=== PATIENT | male | born 1975 | race Caucasian/White ===

== ENCOUNTER 2023-07-29 09:58 | Observation (INO) | payer OTHER ==
[~2023-07-29] VITALS: Ht 180.3 cm; Wt 86.0 kg
--- NOTE | ~2023-07-29 | EKG ---
[facility] [address] [place], [place] [address] Draft EK completed, results pending confirmation PATIENT NAME: ALDENLISA Electrocardiogram DATE OF : 71 PHYSICIAN: PRELIMINARY REPORT #: [id number] REPORT IS CONFIDENTIAL AND NOT TO BE RELEASED WITHOUT AUTHORIZATION
[2023-07-29] MEDS ORDERED: BUSPIRONE HCL10 MG (10:13)
[2023-07-29] MEDS ORDERED: PROZAC20 MG (10:14)
[2023-07-29 10:26] LABS: BASOPHILS 0.9 % (0-2); EOSINOPHILS 1.3 % (0-6); HEMATOCRIT 43.1 % (35.0-50.0); HEMOGLOBIN 14.5 g/dL (12.0-18.0); LYMPHOCYTES 15.5 % (24-44); MCHC 33.6 g/dl (30-36); MCV 86.4 fl (81-99); MONOCYTES 7.3 % (0-12); PLATELET COUNT 221 K/uL (140-440); RBC 4.99 M/ul (4.3-5.7); RDW 12.9 (10.5-15.0)
[2023-07-29 10:41] LABS: ALBUMIN 3.6 g/dL (3.4-5.0); ALBUMIN/GLOBULIN RATIO 0.86 (1.1-2.4); BUN/CREATININE RATIO 11.6 (6.0-28.6); CALCIUM 9.1 mg/dL (8.5-10.1); CREATININE, SERUM 1.12 mg/dL (0.70-1.30); PROTEIN, TOTAL 7.8 g/dL (6.4-8.2)
[2023-07-29 11:47] LABS: BILIRUBIN, URINE NEGATIVE (negative); BLOOD/HGB, URINE NEGATIVE (Negative); KETONE, URINE NEGATIVE (Negative); LEUK ESTERASE, URINE NEGATIVE (negative); NITRITE, URINE NEGATIVE (negative)
--- NOTE | 2023-07-29 16:10 | NUR ---
PT TRANSFERED TO ROOM 109 FROM ER VIA STRETCHER, ABLE TO AMBULATE FROM STRETCHER TO BED. ACCOMPANIED BY TWO GUARDS. PT STATES ABD PAIN IS TOLERABLE AT THIS TIME, 09/27. DENIES NAUSEA AT THIS TIME. RUQ TENDER TO PALPATION. IV PATENT, FLUIDS RUNNING. VSS. PT DENIES NEEDS AT THIS TIME. ORIENTED TO CALL LIGHT, PLACED WITHIN REACH. PROVIDED ICE WATER AND URINAL. PT DENIES FURTHER NEEDS AT THIS TIME. CALL LIGHT IN REACH.
[2023-07-29 16:17] VITALS: BP 111/73
[2023-07-29 17:53] VITALS: BP 130/73
[2023-07-29 19:45] VITALS: BP 110/76; BP 110/765
[2023-07-30] VITALS (9 sets, daily range): BP systolic 100–127; BP diastolic 47–75
--- NOTE | 2023-07-30 06:29 | CONS ---
[facility] [address] [place], [place] [address] Signed DATE OF CONSULTATION: 07/29/2023 CHIEF COMPLAINT: Right upper quadrant abdominal pain. HISTORY OF PRESENT ILLNESS: Lisa is a 48-year-old gentleman from [facility] [place]. He has had at least six episodes now of severe right upper quadrant abdominal pain associated with nausea. He was in [place], [place] previously and he knows he has gallstones. He was brought to our local emergency room for evaluation. White count. Liver function tests are normal along with the lipase. Ultrasound shows multiple stones and sludge, but the gallbladder wall is not thickened. The common bile duct is unremarkable 3.7 mm. There is no pericholecystic fluid. He seemed to have a positive Clement sign. I was asked to admit him as a general surgeon on-call. In the meantime, he is doing well. PAST MEDICAL HISTORY: Includes depression. PAST SURGICAL HISTORY: None. SOCIAL HISTORY: He does not smoke or drink. He is from our [facility]. He is and has three children. He is originally from [place], [place]. FAMILY HISTORY: He thinks his mom had some type of cancer associated with her heart. REVIEW OF SYSTEMS: He had 10 systems reviewed. He says he has never had any previous surgery and there is no metal in his body. ALLERGIES: None. MEDICATIONS: Buspirone 20 mg p.o. b.i.d. and fluoxetine 20 mg p.o. daily. PHYSICAL EXAMINATION: VITAL SIGNS: His blood pressure is 111/73, heart rate is 57, respiratory rate 18, temperature is 97.3. He is 100% on room air. He is 5 feet 11 inches tall, 86 kg with a body mass index of 26. Electronically Signed By: HERBER LONG MD 07/30/23 0629 PATIENT NAME: LISA RUANO CONSULTATION DATE OF : 71 REPORT #: [id number] PHYSICIAN: HERBER LONG MD PCP: NO PRIMARY CARE PHYSICIAN REPORT IS CONFIDENTIAL AND NOT TO BE RELEASED WITHOUT AUTHORIZATION [facility] [address] [place], [place] [address] Signed GENERAL: Lisa is a 48-year-old gentleman, who appears healthy and at his stated age. He is lying supine in his hospital bed. Two officers are in the room with him. He is not jaundiced. He is in no acute distress. LUNGS: Generally clear to auscultation bilaterally. HEART: Regular rate and rhythm without murmurs. ABDOMEN: Soft, flat, and nontender. He points to the right upper quadrant as the area that causes him pain. LABORATORY DATA: His white blood cell count 9.2, hemoglobin 14, neutrophils 75, platelets 221. Electrolytes unremarkable. Total bilirubin 1.0, AST 36, ALT 51, alkaline phosphatase 85, lipase 37, albumin 3.6. RADIOGRAPHIC STUDIES: Ultrasound shows mobile stones and sludge along with an unremarkable common bile duct at 3.7 mm. The gallbladder wall is not thickened. There is no pericholecystic fluid. Apparently, he had a positive Clement sign. ASSESSMENT/PLAN: Lisa is a 48-year-old gentleman, who presents with recurring episodes of biliary colic associated with his cholelithiasis. He has been admitted and given IV fluids and clear liquid diet. He has been given some pain control. I brought with me a brochure on the gallbladder and I went through that with him page by page. We discussed the location and function of the gallbladder. We have discussed laparoscopic versus open cholecystectomy. He understands expected intraop and postop course. There is risk including, but not limited to bleeding, infection, scarring, change in contour of the skin, damage to bowel, damage to main bile duct, incisional hernias and other unforeseen comorbidities. He has expressed understanding and would like to proceed. We will go ahead and add him on to our schedule in the morning. He has expressed understanding and would like to proceed as above. Herber Long MD [facility] /[id number] cc: Herber Long MD Electronically Signed By: HERBER LONG MD 07/30/23 0629 PATIENT NAME: LISA RUANO CONSULTATION DATE OF : 71 REPORT #: [id number] PHYSICIAN: HERBER LONG MD PCP: NO PRIMARY CARE PHYSICIAN REPORT IS CONFIDENTIAL AND NOT TO BE RELEASED WITHOUT AUTHORIZATION [facility] [address] [place] [id number] Signed [facility] Copies: HERBER LONG MD ~ Electronically Signed By: HERBER LONG MD 07/30/23 0629 PATIENT NAME: ALDENLISA NATAN CONSULTATION DATE OF : 71 REPORT #: [id number] PHYSICIAN: HERBER LONG MD PCP: NO PRIMARY CARE PHYSICIAN REPORT IS CONFIDENTIAL AND NOT TO BE RELEASED WITHOUT AUTHORIZATION
--- NOTE | 2023-07-30 07:05 | NUR ---
REPORT RECIEVED FROM JOHN BARRETO. PT RESTING IN BED SEMI-FOWLERS. EYES CLOSED, RR EVEN AND UNLABORED. NO NEEDS IDENTIFIED AT THIS TIME. CALL LIGHT IN REACH. 2 GUARDS IN ROOM.
--- NOTE | 2023-07-30 09:05 | NUR ---
IN TO ADMINISTER MEDICATIONS, SEE MAR. PT SITTING UP IN BED AND RESPONDS WHEN ADDRESSED. PT TAKES PO MEDICATIONS WITH SIP OF WATER. IV FLUSHES WNL. IV ABX STARTED, SEE MAR. ASSESSMENT COMPLETE. LUNG SOUNDS CLEAR. BOWEL TONES ACTIVE. PT REPORTS ABD TENDERNESS TO RUQ WITH PALPATION. ABD SOFT WITH PALPATION. PEDAL PULSES PALPABLE AND EQUAL BILATERALLY. PT REPORTING PAIN 6/10 TO ABD. JOHN TIRADO AND JEAN CARLOS BARRERA IN ROOM TO COMPLETE PRE-PROCEDURE WIPE DOWN. NO OTHER NEEDS FROM THIS RN AT THIS TIME. 2 GUARDS IN ROOM.
--- NOTE | 2023-07-30 09:23 | NUR ---
Chlorhexidine surgical wipe down given with 2 staff assist. New gown given. Pt performed oral cares and angel care independently. Full linen change. Two correctional officers in the room. Warm blankets given. Call light within reach.
--- NOTE | 2023-07-30 09:29 | NUR ---
IN TO ADMINISTER PRN PAIN MEDICAITON, SEE MAR. IV ABX STARTED, SEE MAR. PT LAYING IN BED. PT DENIES ANY NEEDS AT THIS TIME. CALL LIGHT IN REACH. 2 GUARDS IN ROOM.
--- NOTE | 2023-07-30 10:04 | NUR ---
ROUNDS. PT EXPRESSED LOW LEVELS OF ANXIETY; CONSENTED TO PRAYER. PROVIDED HOSPITALITY; PROVIDED PRAYER.
--- NOTE | 2023-07-30 10:11 | NUR ---
IN IV PUMP ALARMING, RESOLVED. NEW BAG OF IV ABX STARTED, SEE MAR. PT REPORTING PAIN 2/10 TO ABD. PT SITTING UP IN BED AND RESPONDS WHEN ADDRESSED. PT DENIES ANY OTHER NEEDS AT THIS TIME. CALL LIGHT IN REACH. 2 GUARDS IN ROOM.
--- NOTE | 2023-07-30 10:36 | NUR ---
SURGICAL NURSE HERE TO TAKE PT DOWN FOR PROCEDURE. PT SL AT THIS TIME. NO OTHER NEEDS FROM THIS RN. 2 GUARDS IN ROOM. JOHN BHAT IN ROOM.
--- NOTE | 2023-07-30 10:40 | NUR ---
pt taken to OR
--- NOTE | 2023-07-30 11:01 | NUR ---
PATIENT IS FROM [facility]. PLAN TO RETURN WHEN READY, AFTER SURGERY.
--- NOTE | 2023-07-30 12:03 | NUR ---
PT OUT OF ROOM FOR PROCEDURE.
--- NOTE | 2023-07-30 13:23 | NUR ---
07/30/23 1323 Rosy Duffy 1314 PT TO PACU SLEEPING ORAL AIRWAY IN PLACE, O2 VIA MASK AT 6L, FOGGING NOTED IN MASK.
--- NOTE | 2023-07-30 14:20 | NUR ---
PT ARRIVES BACK TO ROOM. BEDSIDE REPORT RECEIVED FROM YADIRA FRAZIER RN. VITALS COMPLETE. ASSISTED PT WITH UNDERWEAR AND PANTS. ASSESSMENT COMPLETE. LUNG SOUNDS CLEAR. BOWEL TONES HYPOACTIVE. 3 DRESSINGS NOTED TO PTs 4 LAP SITED. DRESSINGS C/D/I. ICE PACK TO ABD. PT RESTING WITH EYES CLOSED, PT RESPONDS WHEN ADDRESSED. 2 GUARDS IN ROOM. NO OTHER NEEDS IDENTIFIED AT THIS TIME. CALL LIGHT IN REACH.
--- NOTE | 2023-07-30 16:57 | NUR ---
IN TO ROUND ON PT. PT LAYING IN BED WITH EYES CLOSED, RR EVEN AND UNLABORED. O2 SATS AT 98% ON 3L NC. PT TITRATED TO RA AND O2 SATS MAINTAIN AT 98%. PT REPORTING PAIN 03/30 TO ABD. PRN PAIN MEDICATION ADMINISTERED, SEE MAR. PT TAKES PO MEDICATION WITH NO ISSUES. IV INFUSING WNL. DINNER TRAY ARRIVES. PT DENIES ANY OTHER NEEDS AT THIS TIME. CALL LIGHT IN REACH. 2 GUARDS IN ROOM.
--- NOTE | 2023-07-30 18:27 | NUR ---
IN PT REPORTING PAIN 12/28. PRN PAIN MEDICATION ADMINISTERED, SEE MAR. PT SITTING UP IN BED AND RESPONDS WHEN ADDRESSED. PT TAKES PO MEDICATION WITH NO ISSUES. PT DENIES NAUSEA AFTER EATING DINNER. ENCOURAGED PO INTAKE. PT PROVIDED MARTHA. PT DENIES ANY OTHER NEEDS AT THIS TIME. CALL LIGHT IN REACH. 2 GUARDS IN ROOM.
--- NOTE | 2023-07-30 18:47 | NUR ---
IN TO ENCOURAGE PT TO ATTEMPT TO VOID. SBA FROM BED TO RESTROOM. PT ON TOILET. 2 GUARDS IN ROOM. PT AND GUARDS INFORMED TO CALL WHEN PT IS FINISHED. GUARDS AND PT VERBALIZE UNDERSTANDING. NO OTHER NEEDS FROM THIS RN. CALL LIGHT IN REACH.
--- NOTE | 2023-07-30 19:06 | NUR ---
THIS RN CALLED DR. GARCÍA REGARDING PTs URINE OUTPUT AND BLADDERSCAN OF 1046. ORDERS RECEIVED, VERIFIED WITH READBACK.
--- NOTE | 2023-07-30 19:25 | NUR ---
Patient in room lying in bed resting, appearsw comfortable, 2 gaurds at bedside, patient in hand and ankle cuffs for security. Report provided by day shift RN, call light within reach.
--- NOTE | 2023-07-30 19:28 | NUR ---
IN TO STRAIGHT CATH PT PER ORDERS. PT STRAIGHT CATHED PER POLICY. 1200ML OUT NOTED. PT TOLERATES WELL. PT IN BED. PT DENIES ANY OTHER NEEDS AT THIS TIME. CALL LIGHT IN REACH. 2 GUARDS IN ROOM.
--- NOTE | 2023-07-30 20:35 | NUR ---
Patient resting in bed, VSS, given pudding and tea and patient tolerated without difficulty, 3 lap sites to abdomine clean, dry and intact. lowest one with small amt of old drainage noted, BT's active, denies nausea, IV infusing @ 100/h. call light within reach. Watching TV.
--- NOTE | 2023-07-30 21:40 | NUR ---
Patient voided 600 mls without difficulty. Given 2 apple juices to drink and tolerated well.
--- NOTE | 2023-07-30 23:00 | NUR ---
CALL MADE TO DR GARCÍA TO KAMILAH WHETHER pt CAN BE DISCHARGED BACK TO FACILITY ([facility]) [facility]. FOLLOWING STRAIGHT CATH AT SHIFT CHANGE, pt HAS SINCE VOIDED 600 MLS- TELEPHONE ORDER READ BACK OKAY TO CONTINUE WITH DC. pt EATING/DRINKING WELL, VSS, PAIN WNL PER PRIMARY RN SHIVANI.
--- NOTE | 2023-07-30 23:35 | NUR ---
IN ROOM TO COMPLETE DISCHARGE INSTRUCTIONS WITH pt, [facility] REMAIN IN ROOM AND PRESENT FOR DISCHARGE. pt ASKING ABOUT GETTING A SANDWICH AND JUICE, BOTH PROVIDED. pt ALSO VOIDED ANOTHER APPROX 550MLS LIGHT YELLOW URINE. WRITTEN DISCHARGE INSTRUCTIONS WITH PRESCRIPTION IN [facility] ENVELOPE AND HANDED TO GUARD. IV DC'D BY PRIMARY RN SHIVANI AND VS COLLECTED AND STABLE. PRN NORCO X2 GIVEN TO Pt BY PRIMARY RN SHIVANI PRIOR TO DC TO [facility], pt WHEELED IN WC WITH GUARDS X2, [facility]. PRIMARY RN COMPLETED TELEPHONE REPORT. SLAB LIFTING ENGINEER MADE AWARE.
--- NOTE | 2023-07-31 07:01 | OR ---
[facility] [address] [place], [place] [address] Signed DATE OF OPERATION: 07/30/2023 SURGEON: Herber Long MD PREOPERATIVE DIAGNOSES: 1. Cholecystitis, cholelithiasis. 2. Biliary colic. POSTOPERATIVE DIAGNOSES: 1. Cholecystitis, cholelithiasis and pus. 2. Biliary colic. PROCEDURE: Laparoscopic cholecystectomy without intraoperative cholangiogram. ESTIMATED BLOOD LOSS: None. FINDINGS: Lisa had some gallbladder wall edema and some mild thickening. His gallbladder was entirely full of thick pus. He had several small 3-4 mm yellow cholesterol stones. We could not get the intraoperative cholangiocatheter pass down through the valves of Heister. Therefore, we could not perform the intraoperative cholangiogram. The common bile duct was unremarkable on ultrasound. INDICATIONS: Lisa is a 48[facility] [place]. He has had six or more episodes of right upper quadrant abdominal pain with nausea. He found out he had gallstones when he was down in [place], [place]. He is now up here in [place], [place]. When he had recurrent symptoms, he was brought to our local emergency room from the [facility]. His labs were unremarkable. Ultrasound showed some mobile stones and what appeared to be sludge. The gallbladder wall was not thickened. Common bile duct was 3.7 mm. There was no pericholecystic fluid. He seemed to have a positive Clement sign. I had been asked to admit him as a local general surgeon on-call. I met him after work. He seemed to be doing quite fine. We let him have liquids till midnight and n.p.o. after midnight. We added him to our schedule next day. He received Rocephin and Flagyl. He received subcutaneous Lovenox as well as SCDs. I brought with me a brochure on the gallbladder. We had discussed the location of function of the gallbladder. We discussed laparoscopic versus open cholecystectomy. We reviewed the expected intraop and postop course. There Electronically Signed By: HERBER LONG MD 07/31/23 0701 PATIENT NAME: LISA RUANO OPERATIVE REPORT DATE OF : 71 REPORT #: [id number] PHYSICIAN: HERBER LONG MD PCP: NO PRIMARY CARE PHYSICIAN REPORT IS CONFIDENTIAL AND NOT TO BE RELEASED WITHOUT AUTHORIZATION [facility] [address] [place], [place] [address] Signed is risk including, but not limited to bleeding, infection, scarring, change in contour of skin, damage to bowel, damage to main bile duct, incisional hernias and other unforeseen comorbidities. We also talked about the possibility of common bile duct stones requiring endoscopic ultrasound and ERCP. He is aware that is not available in our community. He had expressed understanding and wished to proceed. PROCEDURE IN DETAIL: Lisa was taken into our operating room and placed in the supine position under general endotracheal tube anesthesia. He was given preoperative antibiotics with Rocephin and Flagyl. He had subcutaneous Lovenox. SCDs were utilized. He was prepped and draped in the usual sterile fashion. All trocars were placed in their usual positions under direct visualization of camera without difficulty. We took pictures throughout for photodocumentation. His gallbladder was not overly thickened, but it was edematous throughout. His liver was quite unremarkable. We had created a small opening in the top of the gallbladder and out came the pus which we suctioned through our suction public health physician. We then grasped that hole with our grasper and lifted the gallbladder in the right upper quadrant. He has a very long gallbladder and it took a few minutes starting about the mid gallbladder to bring all the surrounding fat down and out of the way with blunt dissection. We put several clips on the cystic artery and it had been divided. We stayed at very high on the gallbladder and we could see as a long neck of the gallbladder. We opened it sharply and suctioned out some additional pus. We milked out the cystic duct toward the neck of the gallbladder and did not find any additional stones. The intraoperative cholangiocatheter was inserted and passed down towards the cystic duct. We could not get the catheter to pass into the cystic duct. We tried to pass some saline through our catheter down the cystic duct, which was unsuccessful. We therefore secured the neck of the gallbladder as it came down towards the cystic duct with a PDS Endoloop. Two clips were placed across this area to jolly its location. The gallbladder was then slowly and carefully removed from the gallbladder fossa with the help of the cautery and placed into an EndoCatch bag. After this, we used our laparoscopic suturing device to pass 0-Vicryl suture on either side of the fascia of the subxiphoid trocar site. This was tied down to close this fascia primarily. After this, all the gas was allowed to escape and all the trocars were removed. I personally opened the gallbladder carefully in our kidney basin. I did not touch the gallbladder directly with my hands. I used all instruments. We could see that the gallbladder still had some pus and an additional 3 mm yellow cholesterol stone. We followed it right down to the neck of the gallbladder. After this, the gallbladder was passed off the table for photodocumentation. Those instruments were also passed off the table. We opened up a new DeBakey forceps. We then closed the fascia of the supraumbilical trocar site with interrupted [id number] and simple 0-Vicryl suture. Each trocar site was infiltrated with local anesthetic. Each trocar site was irrigated and suctioned out until clear. The skin and dermis of each trocar site were closed with interrupted 3-0 subcuticular Monocryl sutures. Dry gauze and tape were then applied to all incisions. Electronically Signed By: HERBER LONG MD 07/31/23 0701 PATIENT NAME: LISA RUANO OPERATIVE REPORT DATE OF : 71 REPORT #: [id number] PHYSICIAN: HERBER LONG MD PCP: NO PRIMARY CARE PHYSICIAN REPORT IS CONFIDENTIAL AND NOT TO BE RELEASED WITHOUT AUTHORIZATION [address] [address] Signed Lisa was then awakened from his anesthesia, extubated in the OR, and taken to recovery room in stable condition. Herber Long MD [facility] /[id number] cc: Herber Long MD [facility] Copies: HERBER LONG MD ~ Electronically Signed By: HERBER LONG MD 07/31/23 0701 PATIENT NAME: LISA RUANO OPERATIVE REPORT DATE OF : 71 REPORT #: [id number] PHYSICIAN: HERBER LONG MD PCP: NO PRIMARY CARE PHYSICIAN REPORT IS CONFIDENTIAL AND NOT TO BE RELEASED WITHOUT AUTHORIZATION
--- NOTE | 2023-08-05 14:58 | PATH ---
[facility] [address] [place], [place] [address] Signed SPECIMEN(S): A GALLBLADDER AND CONTENTS SPECIMEN SOURCE: A. GALLBLADDER AND CONTENTS CLINICAL HISTORY: Cholecystitis, biliary colic FINAL PATHOLOGIC DIAGNOSIS: Gallbladder and contents: - Acute and chronic calculous cholecystitis. JVR:elmer MICROSCOPIC EXAMINATION: Histologic sections of all submitted blocks are examined by light microscopy. These findings, together with the gross examination, support the pathologic diagnosis. GROSS DESCRIPTION: The specimen, labeled and designated "riky Ruano," is received in formalin and consists of: Specimen: Previously opened gallbladder. Dimensions: 8.5 x 3.0 cm. Serosa: Violaceous, smooth, and focally congested. Cystic Duct: Inked, unobstructed. Calculi: One yellow gallstone within the container that measures 0.2 cm in diameter. Mucosa: Douglas-asencio and velvety. Wall thickness: 0.8 cm. Lymph node: No pericystic lymph nodes are grossly identified. Additional: None. Garage Helper sections are submitted in (A1). JS (under the direct supervision of a pathologist) The Gross Description was prepared using a voice recognition system. The report was reviewed for accuracy; however, sound-alike word errors, addition and/or deletions may occur. If there is any question about this report, please contact Client Services. PERFORMING LABORATORY: Technical component was performed by [facility], [address] [place] [address] (CLIA# [id number]). Professional interpretation was PATIENT NAME: LISA RUANO PATHOLOGY DATE OF : 71 REPORT #: [id number] PHYSICIAN: [facility] PCP: NO PRIMARY CARE PHYSICIAN REPORT IS CONFIDENTIAL AND NOT TO BE RELEASED WITHOUT AUTHORIZATION [facility] [address] [place], [place] [address] Signed performed by [facility] [address] [address] (CLIA#: [id number]). Diagnostician: Ayan Crowley MD Pathologist Electronically Signed 08/05/2023 Copies: ~ PATIENT NAME: LISA RUANO PATHOLOGY DATE OF : 71 REPORT #: [id number] PHYSICIAN: [facility] PCP: NO PRIMARY CARE PHYSICIAN REPORT IS CONFIDENTIAL AND NOT TO BE RELEASED WITHOUT AUTHORIZATION
== END 2023-07-30 23:35 | disposition other institution, planned readmission (95) ==
LOC: ED 09:58 → MS 10:00
PROVIDERS: Emergency Medicine; ADMIT Colon & Rectal Surgery; ATTEND Colon & Rectal Surgery
PROC: BF121ZZ Fluoroscopy of Gallbladder using Low Osmolar Contrast (ICD-10-PCS; 2023-07-30)
PROC: 0FT44ZZ Resection of Gallbladder, Percutaneous Endoscopic Approach (ICD-10-PCS; principal; 2023-07-30 12:30)
DX: K80.66 Calculus of gallbladder and bile duct with acute and chronic cholecystitis without obstruction (principal); F32.A Depression, unspecified
CPT/HCPCS: 00790; 36415; 51701; 76705; 80053; 81003; 83690; 85025; 93005; 93010; 96372; 96374; 96375; 96376; 99285-25; A9270; C9113; G0378; J0131; J0330; J0696; J1100; J1170; J1650; J1885; J2001; J2250; J2405; J2704; J3010; J3475; J3490; J7030; J7121